=== PATIENT | male | born 1980 | race American Indian/Alaskan Native ===

== ENCOUNTER 2016-11-10 23:05 | Emergency (ER) | payer SELFPAY ==
[2016-11-10 23:24] VITALS: BP 118/73
[2016-11-10] MEDS ORDERED: TYLENOL PO ONE (23:24)
== END 2016-11-11 02:30 | disposition left against medical advice (07) ==
LOC: ED 23:05
DX: M54.5 Low back pain (principal); Z53.21 Procedure and treatment not carried out due to patient leaving prior to being seen by health care provider